=== PATIENT | male | born 1945 | race Caucasian/White ===

== ENCOUNTER 2022-11-17 14:06 | Observation (INO) | payer OTHER ==
[~2022-11-17] VITALS: Ht 170.2 cm; Wt 87.6 kg
[2022-11-17] MEDS ORDERED: FINA5 PO (15:10)
[2022-11-17] MEDS ORDERED: DILT180 PO (15:10)
[2022-11-17] MEDS ORDERED: ALBU90OI INH (15:10)
[2022-11-17] MEDS ORDERED: CHLO25B PO (15:10)
[2022-11-17] MEDS ORDERED: ASMANEX220 M14 INH (15:11)
[2022-11-17] MEDS ORDERED: OMEP20ER PO (15:11)
[2022-11-17] MEDS ORDERED: TIOT18 INH (15:12)
[2022-11-17 15:22] LABS: BASOPHILS ABSOLUTE AUTO 0.03 K/mm3 (0.00-0.23); BASOPHILS PERCENT AUTO 0 % (0-2); EOSINOPHILS ABSOLUTE AUTO 0.11 K/mm3 (0.00-0.68); EOSINOPHILS PERCENT AUTO 1 % (0-6); Hemoglobin 14.8 g/dL (13.5-17.5); IMMATURE GRAN ABSOLUTE AUTO 0.05 K/mm3 (0.00-0.10); IMMATURE GRAN PERCENT AUTO 1 % (0-1); LYMPHOCYTES ABSOLUTE AUTO 1.65 K/mm3 (0.84-5.20); LYMPHOCYTES PERCENT AUTO 18 % (21-46); MONOCYTES ABSOLUTE AUTO 1.03 K/mm3 (0.16-1.47); MONOCYTES PERCENT AUTO 11 % (4-13); Mean Corpuscular HGB 30.6 pg (26.0-34.0); Mean Corpuscular HGB Conc 35.2 g/dL (31.5-36.5); Mean Corpuscular Volume 87 fL (80-100); Mean Platelet Volume 10.7 fL (9.1-12.4); NEUTROPHILS ABSOLUTE AUTO 6.15 K/mm3 (1.96-9.15); NEUTROPHILS PERCENT AUTO 68 % (41-73); Platelet Count 244 K/mm3 (150-400); RDW Coefficient Variation 12.3 % (11.7-14.2); Red Blood Cell Count 4.84 M/mm3 (4.30-5.90); White Blood Cell Count 9.02 K/mm3 (4.00-11.30)
[2022-11-17 15:24] LABS: Albumin, Blood 3.5 g/dL (3.4-5.0); Bilirubin, Total 0.5 mg/dL (0.1-1.0); Bun/Creatinine Ratio 19.2 (12.0-20.0); Calcium, Blood 8.9 mg/dL (8.5-10.1); Creatinine, Blood 0.78 mg/dL (0.60-1.20); Globulin, Blood 3.5 g/dL (2.2-4.0); Potassium, Blood 3.8 mmol/L (3.5-5.5)
[2022-11-17 20:12] VITALS: BP 159/110
[2022-11-17 22:15] VITALS: BP 175/93
[2022-11-18 04:38] VITALS: BP 138/89
[2022-11-18 07:28] VITALS: BP 164/98
[2022-11-18 11:41] VITALS: BP 166/91
[2022-11-18 14:16] VITALS: BP 131/72
[2022-11-18 19:24] VITALS: BP 162/81
[2022-11-19 04:11] VITALS: BP 135/91
[2022-11-19 07:17] VITALS: BP 141/84
== END 2022-11-19 16:15 | disposition home or self-care (01) ==
LOC: ER 14:06 → MEDS 14:07 → ENPENDDIS 11-19 15:10 → MEDS 11-19 16:15
PROVIDERS: Emergency Medicine; ADMIT Student in an Organized Health Care Education/Training Program
DX: R07.89 Other chest pain (principal); R77.8 Other specified abnormalities of plasma proteins; E87.1 Hypo-osmolality and hyponatremia; K21.9 Gastro-esophageal reflux disease without esophagitis; J44.9 Chronic obstructive pulmonary disease, unspecified; E11.9 Type 2 diabetes mellitus without complications; I10 Essential (primary) hypertension; E78.5 Hyperlipidemia, unspecified; N40.0 Benign prostatic hyperplasia without lower urinary tract symptoms; G47.33 Obstructive sleep apnea (adult) (pediatric); Z87.891 Personal history of nicotine dependence; Z79.899 Other long term (current) drug therapy
CPT/HCPCS: 71046; 78452; 80053; 82947; 83880; 84484; 85025; 85379; 85651; 86140; 93005; 93010; 93017; 93306; 94640; 94660; 94664; 94760; 94762; 96372; 96374; 99285-25; A9270; A9500; G0378; J0280; J0360; J1650; J2785